=== PATIENT | male | born 1980 | race Caucasian/White ===

== ENCOUNTER 2022-01-29 20:01 | Inpatient (IN) | payer BC, SELFPAY ==
[2022-01-29] VITALS (15 sets, daily range): BP systolic 102–167; BP diastolic 76–94; PULSE 107–130; RESP 18–24; TEMP 36.6–36.7; O2SAT 99–100; BMI 27.7
--- NOTE | ~2022-01-29 | XR_ITS ---
XR chest 2V 01/31/2022 15:04 Indication: Postop. Dyspnea. Procedure: 2 view chest Comparison: No prior studies Findings: Size is normal. Bibasilar airspace disease may represent atelectasis or pneumonia. No signi ficant effusion or pneumothorax. No acute osseous abnormality. Impression: 1: Bibasilar infiltrates, atelectasis versus pneumonia. Reviewed, dictated and finalized at location A. Impression: 1: Bibasilar infiltrates, atelectasis versus pneumonia.
--- NOTE | ~2022-01-29 | CT_ITS ---
EXAMINATION: CT abdomen pelvis w con DATE: 01/29/2022 21:13 INDICATION: Right-sided flank pain radiating to the groin. TECHNIQUE: Computed tomography (CT) of the abdomen and pelvis was performed with 100 cc Omnipaque 350 intravenous contrast. The dose-length product was 1184.32 mGy-cm. Automated exposure control and ite rative reconstruction technique were employed. COMPARISON: None. FINDINGS: Lung bases are unremarkable. Heart size normal. There is hiatal hernia with reflux in the e sophagus. No significant pleural or pericardial effusion. Fatty infiltration of the liver. Gallbladder is present. The spleen, pancreas, adrenal glands and kid neys are unremarkable. Appendix is thickened and enhancing with surrounding periappendiceal infiltration, consistent with ac melany appendicitis. Appendix measures 1.5 cm transversely. Small amount of fluid in the right paracolic gutter and periappendiceal region extending into the pelvis. No evidence for perforation or abscess. Nonobstructive bowel gas pattern. No free air. IMPRESSION: 1. Acute uncomplicated appendicitis. Reviewed, dictated and finalized at location A.
--- NOTE | ~2022-01-29 | CT_ITS ---
EXAMINATION: CT abdomen pelvis w con INDICATION: Fever and tachycardia status post appendectomy TECHNIQUE: Computed tomographic images of the abdomen and pelvis were obtained after the administrati on of 100 cc of Omnipaque 350 intravenous contrast. The dose-length product (DLP) was 788.51 mGy-cm. Automated exposure control and iterative reconstruction technique were employed. COMPARISON: 01/29/2022 FINDINGS: There are airspace opacities in the lower lobes, right greater than left. The heart size is normal. The liver is diffusely low in attenuation when compared with the spleen, consistent with hep atic steatosis. The spleen, pancreas, gallbladder, and adrenal glands are normal. The kidneys are unr emarkable. There are changes of interval appendectomy. A surgical drain is present in the right lower quadrant. There are multiple dilated loops of small bowel without discrete transition point. The sto mach is fluid-filled and distended. There is fluid in the mildly distended distal esophagus. There is also liquid stool in the colon. There is a small volume of free fluid in the left pelvis. No free in traperitoneal gas is identified. There is mild lumbar spondylosis. IMPRESSION: 1. Dilated small bowel and stomach without focal transition point,, likely ileus. 2. Small volume of fluid in the left pelvis, likely inflammatory. Reviewed, dictated and finalized at location A. IMPRESSION: 1. Dilated small bowel and stomach without focal transition point,, likely ileu s. 2. Small volume of fluid in the left pelvis, likely inflammatory.
--- NOTE | ~2022-01-29 | XR_ITS ---
EXAMINATION: XR abdomen obstructive series DATE: 02/01/2022 22:27 INDICATION: Emesis. TECHNIQUE: Upright and supine views of the abdomen were obtained. COMPARISON: CT abdomen and pelvis 02/01/2022 FINDINGS: There are dilated loops of small bowel. The colon is decompressed. There is a surgical drai n on the right. No free intraperitoneal gas. There are airspace opacities in the lower lung zones. IMPRESSION: 1. Dilated small bowel, consistent with adynamic ileus. 2. Airspace opacities in the lower lung zones, consistent with atelectasis versus pneumonia. Reviewed, dictated and finalized at location A. IMPRESSION: 1. Dilated small bowel, consistent with adynamic ileus. 2. Airspace opacities in the lower lung zones, consistent with atelectasis vers us pneumonia.
--- NOTE | ~2022-01-29 | XR_ITS ---
EXAMINATION: XR chest 1V portable DATE: 02/01/2022 04:10 INDICATION: Hypoxia TECHNIQUE: frontal view of the chest was obtained. COMPARISON: Chest radiograph dated 01/31/2022 FINDINGS: Lung volumes remain small. Unchanged bilateral infrahilar and basilar opacities. No pleural effusion or pneumothorax. The cardiomediastinal silhouette is normal. IMPRESSION: 1. Unchanged bilateral perihilar and basilar opacities which could represent atelectasis or pneumonia . Reviewed, dictated and finalized at location A. IMPRESSION: 1. Unchanged bilateral perihilar and basilar opacities which could represent at electasis or pneumonia.
--- NOTE | ~2022-01-29 | XR_ITS ---
XR chest 1V portable INDICATION: Atelectasis. Pneumonia. TECHNIQUE: 2 view chest. FINDINGS: No prior studies for comparison. There is mild bilateral interstitial prominence and peribronchial cuffing. There is no focal consoli dation, pleural effusion, or pneumothorax. The cardiomediastinal silhouette is normal. IMPRESSION: 1. Findings most consistent with bronchiolitis versus an atypical or viral pneumonia. Reviewed, dictated and finalized at location B. IMPRESSION: 1. Findings most consistent with bronchiolitis versus an atypical or viral pne [facility].
[2022-01-29 20:19] LABS: Basophils Absolute Auto 0.1 K/mm3 (0.0-0.1); Basophils Percent Auto 0.3 % (0.2-1.2); Eosinophils Absolute Auto 0.1 K/mm3 (0-0.3); Eosinophils Percent Auto 0.5 % (0-4.4); Hematocrit 47.6 % (42.0-52.0); Hemoglobin 16.5 g/dL (14.0-18.0); Immature Granulocyte Absolute 0.11 K/mm3 (0.00-0.031); Immature Granulocyte Percent A 0.4 % (0-0.5); Lymphocytes Absolute Auto 2.65 K/mm3 (0.9-3.2); Lymphocytes Percent Auto 10.3 % (18.3-44.2); Mean Corpuscular HGB Conc 34.7 g/dl (32-36); Mean Corpuscular Hemoglobin 28.3 pg (26-34); Mean Corpuscular Volume 81.5 fl (80-100); Mean Platelet Volume 8.9 fl (7.4-10.4); Monocytes Absolute Auto 2.2 K/mm3 (0.1-0.6); Monocytes Percent Auto 8.5 % (2.6-8.5); Neutrophils Absolute Auto 20.5 K/mm3 (1.3-6.7); Platelet Count Result 512 k/mm3 (150-375); Red Blood Count 5.84 M/mm3 (4.6-6.20); Red Cell Distribution Width 13.1 % (11.5-14.5); White Blood Count 25.6 K/mm3 (4.5-10.0)
--- NOTE | 2022-01-29 20:20 | ED.ABDPAIN ---
HPI - Abdominal Pain General Chief Complaint: Abdominal Pain Stated Complaint: lower abd pain Time Seen by Provider: 01/29/22 20:09 Source: patient Mode of arrival: ambulatory Limitations: no limitations History of Present Illness HPI narrative: This is a 41 year old male that presents to the ER for right-sided abdominal pain present since this afternoon. Reports the pain radiates from the flank into the right testicle. Associated with nausea and vomiting. Denies fever or dysuria. Related Data Allergies Allergy/AdvReac Type Severity Reaction Status Date / Time No Known Drug Allergies Allergy Unknown Unknown Verified 01/29/22 20:02 Review of Systems Review of Systems: CONSTITUTIONAL: Denies fever GASTROINTESTINAL: Reports abdominal pain, nausea, vomiting GENITOURINARY: Denies dysuria or hematuria. All systems reviewed & are unremarkable except as noted in HPI and below PMFSH Past Medical History Medical History (Updated 01/29/22 @ 22:25 by Elda Conner PA-C) No active medical problems Social History Social History (Updated 01/29/22 @ 20:25 by Elda Conner PA-C) Smoking status: Never smoker Exam Narrative: GENERAL: Well-appearing, well-nourished, and in no acute distress. HEAD: Normocephalic, atraumatic. EYES: EOMI. CHEST: Clear to auscultation. No respiratory distress. No wheezes rales or rhonchi HEART: Regular rate and rhythm. No murmur heard. Normal peripheral pulses. ABDOMEN: Soft, nondistended, normal active bowel sounds. Tender to palpation throughout the right side of the abdomen. No CVA tenderness EXTREMITIES: Normal range of motion. No edema. SKIN: Warm, dry, no rash. NEURO: No focal deficits. Alert and oriented x3. PSYCH: Normal mood and affect Course Consultations Consultation #1: Spoke with Dr. Shay about patient and workup. Patient will be admitted overnight for likely OR in the AM Date: 01/29/22 Time: 22:00 Vital Signs Vital signs: Vital Signs Temperature 98.0 F 01/29/22 20:04 Pulse Rate 120 H 01/29/22 20:04 Respiratory Rate 24 H 01/29/22 20:04 Blood Pressure 131/90 01/29/22 20:04 Pulse Oximetry 100 01/29/22 20:04 Oxygen Delivery Room Air 01/29/22 20:04 Temperature 98.0 F 01/29/22 20:04 Pulse Rate 107 H 01/29/22 21:31 Respiratory Rate 18 01/29/22 21:31 Blood Pressure 160/87 H 01/29/22 21:31 Pulse Oximetry 99 01/29/22 21:31 Oxygen Delivery Room Air 01/29/22 20:04 MDM - Abdominal Pain MDM Narrative Medical decision making narrative: Patient presents to the emergency department for right-sided abdominal pain associated with nausea and vomiting. Patient is afebrile and nontoxic-appearing. Tachycardic upon arrival, this normalized with IV fluid administration. CBC with leukocytosis to 25.6. Lactic acid initially elevated at 4.1. Metabolic panel without concerning findings. UA without evidence of infection. CT scan of the abdomen and pelvis shows acute uncomplicated appendicitis. Patient hydrated with IV fluids and started on antibiotics. Spoke with Dr. Shay about patient and workup. Patient will be admitted overnight for likely OR in the AM Lab Data Attestation: I reviewed the patient's lab results. Result diagrams: 01/29/22 20:13 01/29/22 20:13 Labs: Lab Results 01/29/22 01/29/22 01/29/22 Range/Units 20:13 20:13 21:50 WBC 25.6 H (4.5-10.0) K/mm3 RBC 5.84 (4.6-6.20) M/mm3 Hgb 16.5 (14.0-18.0) g/dL Hct 47.6 (42.0-52.0) % MCV 81.5 (80-100) fl MCH 28.3 (26-34) pg MCHC 34.7 (32-36) g/dl RDW 13.1 (11.5-14.5) % Plt Count 512 H (150-375) k/mm3 MPV 8.9 (7.4-10.4) fl Immature Gran % (Auto) 0.4 (0-0.5) % Neut % (Auto) 80.0 H (45.5-73.1) % Lymph % (Auto) 10.3 L (18.3-44.2) % [place] % (Auto) 8.5 (2.6-8.5) % Eos % (Auto) 0.5 (0-4.4) % Baso % (Auto) 0.3 (0.2-1.2) % Lymph # (Auto) 2.65 (0.9-3.2) K/mm3 [place] # (Auto) 2.2 H
[2022-01-29] MEDS: MORPHINE SULFATE (*CRX) 4 MG/ML INJ IV PUSH (20:23)
[2022-01-29] MEDS: SODIUM CHLORIDE 0.9% IV 1,000 ML 999 ML IV CONT ×3 (20:23→23:17)
[2022-01-29] MEDS: ONDANSETRON INJ 4 MG/2 ML VIAL IV PUSH (20:23)
[2022-01-29 20:28] LABS: Alanine Aminotransferase 129 U/L (6-50); Albumin Level 5.1 g/dL (3.5-5.1); Alkaline Phosphatase 131 U/L (38-126); Anion Gap 15 mmol/L (8-16); Aspartate Amino Transferase 57 U/L (17-59); Bilirubin,Total 0.7 mg/dL (0.2-1.3); Blood Urea Nitrogen 15 mg/dL (9-20); Calcium 10.2 mg/dL (8.4-10.2); Carbon Dioxide 22 mmol/L (22-30); Chloride 100 mmol/L (98-107); Estimated CRCL calculation 106 ml/min; Estimated Glomerular Filt Rate > 60; Glucose 162 mg/dL (65-110); Lipase 89 U/L (23-300); Potassium 3.4 mmol/L (3.4-5.0); Sodium 137 mmol/L (137-145)
[2022-01-29 20:39] LABS: Atypical Lymphocytes Present; Platelet Estimate Increased (Adequate)
[2022-01-29] MEDS: HYDROmorphone HCL INJ (*CRX) 1 MG/ML SYR 0.5 MG IV PUSH (20:58)
[2022-01-29] MEDS: KETOROLAC 15 MG/ML VIAL (*BKC) IV PUSH (22:09)
[2022-01-29 22:11] LABS: Appearance Urine Clear (Clear); Bilirubin Urine Negative (Negative); Color Urine Yellow (Yellow); Glucose Urine UA Negative (Negative); Ketones Urine 1+ mg/dL (Negative); Leukocyte Esterase Ur Negative LEU/UL (Negative); Nitrate Urine Negative (Negative); Protein Urine Negative (Negative); Specific Grav Ur <= 1.005 (1.001-1.035); Urobilinogen Urine 0.2 mg/dL (<2.0)
[2022-01-29 22:14] LABS: Hemoglobin A1C 5.4 % (<5.7)
[2022-01-29 22:18] LABS: Lactic Acid Reflex 4.1 mmol/L (0.7-2.0); Mucus Urine Rare /lpf; RBC Urine 0-2 /hpf (0-2); Squamous Epithelial Cell Urine Rare /hpf (Few); WBC Urine 0-3 /hpf
[2022-01-29 22:19] LABS: Add Urine Microscopic? YES; Blood Urine Trace-Intact (Negative)
--- NOTE | 2022-01-29 23:00 | ADMGEN ---
This patient, Jose D Rodriguez, was admitted to Medical Room 241-01. Patient/family oriented to hospital policies and general routines including ID bracelet, bed and alarms, visiting hours, pain management, procedures, bathroom and other care routines, personal items, smoking policy, room service/diet, and visiting hours. Information on how to activate the Rapid Response Team has been discussed. Patient/Family are encouraged to report perceived risks to care and to ask questions if they do not understand what they are told or what they should do.
[2022-01-29 23:29] LABS: SARS-CoV-2 RNA PCR Negative
[2022-01-30] VITALS (14 sets, daily range): BP systolic 125–175; BP diastolic 68–97; PULSE 94–132; RESP 16–26; TEMP 36.1–37.2; O2SAT 90–100
[2022-01-30] MEDS: SODIUM CHLORIDE 0.9% IV 1,000 ML 125 ML IV CONT ×4 (00:29→20:13)
[2022-01-30 01:04] LABS: Reflex Lactic Acid Yes or No Add Lactic
[2022-01-30 01:43] LABS: Lactic Acid 3.4 mmol/L (0.7-2.0)
--- NOTE | 2022-01-30 08:06 | WPDANESEPP ---
Anes - Eval Pre Procedure Procedure: laparoscopic appendectomy Date/Time: 01/30/22 08:06 Preop Diagnosis: acute appendicitis Pre Op Diagnosis: acute apppendicitis Patient Data Age: 41 Gender: M Height: 1.85 m Weight: 95.3 kg Last Vital Signs Temp 37.2 C 01/30/22 04:56 Pulse 127 H 01/30/22 04:56 Resp 20 01/30/22 04:56 BP 125/68 01/30/22 04:56 Pulse Ox 96 01/30/22 04:56 O2 Del Method Room Air 01/29/22 20:04 Allergies Allergy/AdvReac Type Severity Reaction Status Date / Time No Known Drug Allergies Allergy Unknown Unknown Verified 01/29/22 20:02 Home Medications Medication Instructions Recorded Confirmed Type No Home Medications 01/29/22 01/29/22 History Laboratory Tests 01/29/22 01/29/22 01/29/22 20:13 20:13 21:50 WBC 25.6 K/mm3 H K/mm3 (4.5-10.0) RBC 5.84 M/mm3 M/mm3 (4.6-6.20) Hgb 16.5 g/dL g/dL (14.0-18.0) Hct 47.6 % % (42.0-52.0) MCV 81.5 fl fl (80-100) MCH 28.3 pg pg (26-34) MCHC 34.7 g/dl g/dl (32-36) RDW 13.1 % % (11.5-14.5) Plt Count 512 k/mm3 H k/mm3 (150-375) MPV 8.9 fl fl (7.4-10.4) Immature Gran % (Auto) 0.4 % % (0-0.5) Neut % (Auto) 80.0 % H % (45.5-73.1) Lymph % (Auto) 10.3 % L % (18.3-44.2) [place] % (Auto) 8.5 % % (2.6-8.5) Eos % (Auto) 0.5 % % (0-4.4) Baso % (Auto) 0.3 % % (0.2-1.2) Lymph # (Auto) 2.65 K/mm3 K/mm3 (0.9-3.2) [place] # (Auto) 2.2 K/mm3 H K/mm3 (0.1-0.6) Eos # (Auto) 0.1 K/mm3 K/mm3 (0-0.3) Baso # (Auto) 0.1 K/mm3 K/mm3 (0.0-0.1) Abs Immat Gran (auto) 0.11 K/mm3 H K/mm3 (0.00-0.031) Absolute Neuts (auto) 20.5 K/mm3 H K/mm3 (1.3-6.7) Absolute Nucleated RBC 0.0 K/mm3 K/mm3 (0.0-0.012) Nucleated RBC % 0.0 % % (0.0-0.2) Atypical Lymphocytes Present Platelet Estimate Increased (Adequate) Sodium 137 mmol/L mmol/L (137-145) Potassium 3.4 mmol/L mmol/L (3.4-5.0) Chloride 100 mmol/L mmol/L (98-107) Carbon Dioxide 22 mmol/L mmol/L (22-30) Anion Gap 15 mmol/L mmol/L (8-16) BUN 15 mg/dL mg/dL (9-20) Creatinine 0.90 mg/dL mg/dL (0.7-1.3) Estim Creat Clear Calc 106 ml/min ml/min Estimated GFR > 60 (59 - ) Glucose 162 mg/dL H mg/dL (65-110) Hemoglobin A1c Lactic Acid Calcium 10.2 mg/dL mg/dL (8.4-10.2) Total Bilirubin 0.7 mg/dL mg/dL (0.2-1.3) AST 57 U/L U/L (17-59) ALT 129 U/L H U/L (6-50) Alkaline Phosphatase 131 U/L H U/L (38-126) Total Protein 9.0 g/dL H g/dL (6.3-8.2) Albumin 5.1 g/dL g/dL (3.5-5.1) Lipase 89 U/L U/L (23-300) Urine Color Yellow (Yellow) Urine Appearance Clear (Clear) Urine pH 6.0 (5.0-9.0) Ur Specific [place] <= 1.005 (1.001-1.035) Urine Protein Negative mg/dL mg/dL (Negative) Urine Glucose (UA) Negative mg/dL mg/dL (Negative) Urine Ketones 1+ mg/dL H mg/dL (Negative) Ur Blood (Man) Trace-intact (Negative) Urine Nitrate Negative (Negative) Urine Bilirubin Negative (Negative) Urine Urobilinogen 0.2 mg/dL mg/dL (<2.0) Leukocyte Esterase Rfl Negative JONATHAN/UL JONATHAN/UL (Negative) Urine RBC 0-2 /hpf /hpf (0-2) Urine WBC 0-3 /hpf /hpf Ur Squamous Epith Cells Rare /hpf /hpf (Few) Urine Mucus Rare /lpf /lpf SARS-CoV-2 RNA (RT-PCR) 01/29/22 01/29/22 01/29/22 21:50 21:50 22:38 WBC RBC Hgb Hct MCV MCH MCHC RDW P
--- NOTE | 2022-01-30 08:39 | PM.IMHP ---
H&P: HPI History of Present Illness Date/Time: 01/30/22 08:39 Chief Complaint: RLQ abd pain Narrative: Pt is a 41 y/o M presenting to the ED c/o severe RLQ abd pain. Pt reports pain started acutely yesterday afternoon. Pt reports pain is sharp, constant and radiates to back and groin. Pt reports assoc N/V, anorexia. Pt denies f/c. Pt denies previous episodes. Review of Systems Constitutional: Constitutional: Reports anorexia, Denies chills, Reports fatigue, Denies fever(s), Denies increased appetite, Denies lethargy, Denies malaise, Reports poor appetite, Denies weakness, Denies weight gain and Denies weight loss Eyes: Eyes: Reports no additional eye complaints ENT: Reports system reviewed and no additional complaints, except as documented Cardiovascular: Cardiovascular: Reports no additional cardiovascular complaints Respiratory: Respiratory: Reports no additional respiratory complaints Gastrointestinal: Gastrointestinal: Reports abdominal pain, Reports GI cramping, Reports nausea and Reports vomiting Genitourinary: Genitourinary: Reports no additional male genitourinary complaints Musculoskeletal: Musculoskeletal: Reports no additional musculoskeletal complaints Integumentary/Breasts: Skin/Breast: Reports system reviewed and no additional complaints, except as docu Neurologic: Reports system reviewed and no additional complaints, except as documented Psychiatric: Psychiatric: Reports no additional psychiatric complaints Endocrine: Endocrine: Reports no additional endocrine complaints Hematologic/Lymphatic: Hematologic/Lymphatic: Reports no additional hematologic/lymphatic complaints Allergic/Immunologic: Allergic/Immunologic: Reports no additional allergic/immunologic complaints [facility] Past Medical History Medical History No active medical problems Family History Family History Father Cerebrovascular accident Hypertension Social History Social History Smoking status: Never smoker Alcohol intake: never Substance use: never Spiritual care concerns: No Meds Home Medications and Allergies Home Medications Medication Instructions Recorded Confirmed Type No Home Medications 01/29/22 01/29/22 History Allergies Allergy/AdvReac Type Severity Reaction Status Date / Time No Known Drug Allergies Allergy Unknown Unknown Verified 01/29/22 20:02 Vital Signs Vital Signs - 24 hr 01/29/22 20:04 01/29/22 20:09 01/29/22 20:15 Temperature 36.7 C Pulse Rate 120 H Respiratory Rate 24 H Blood Pressure 131/90 Pulse Oximetry 100 100 100 Oxygen Delivery Room Air 01/29/22 20:16 01/29/22 20:30 01/29/22 20:31 Temperature Pulse Rate Respiratory Rate Blood Pressure 102/88 142/93 H Pulse Oximetry 100 100 100 Oxygen Delivery 01/29/22 20:45 01/29/22 20:47 01/29/22 21:14 Temperature Pulse Rate Respiratory Rate Blood Pressure 150/76 H Pulse Oximetry 100 100 100 Oxygen Delivery 01/29/22 21:15 01/29/22 21:27 01/29/22 21:30 Temperature Pulse Rate Respiratory Rate Blood Pressure 157/82 H Pulse Oximetry 100 99 100 Oxygen Delivery 01/29/22 21:31 01/29/22 22:43 01/29/22 23:09 Temperature 36.6 C Pulse Rate 107 H 108 H 130 H Respiratory Rate 18 24 H 20 Blood Pressure 160/87 H 167/87 H 141/94 H Pulse Oximetry 99 99 99 Oxygen Delivery 01/30/22 00:01 01/30/22 04:56 Temperature 37.0 C 37.2 C Pulse Rate 127 H Respiratory Rate 20 Blood Pressure 125/68 Pulse Oximetry 96 Oxygen Delivery Exam Const: General: cooperative, healthy appearing, acute distress mild and uncomfortable HENMT: Head: normal to inspection, normocephalic and atraumatic Eyes: General: appearance normal, both eyes and all related structures Neck: Neck: normal visual inspe
--- NOTE | 2022-01-30 08:49 | WPDHPUPDATE1 ---
History and Physical Update Update Date/Time: 01/30/22 08:49 History and Physical has been reviewed, including an updated exam of the patient. There are NO changes in the patient's condition. Risks, benefits, and alternatives have been discussed and questions answered. Patient agrees to proceed with procedure.
--- NOTE | 2022-01-30 09:00 | WPDANESEPPF ---
Anes - Initial Pre Proc Eval Procedure: Operation Date: 01/30/22 09:00 Proposed Procedures p Laparoscopic Appendectomy - Sarah Shay MD Date/Time: 01/30/22 09:00 Surgeon: Sheree Rios MD Pre Op Diagnosis: acute apppendicitis Patient Data Age: 41 Gender: M Height: 1.85 m Weight: 95.3 kg Last Vital Signs Temp 37.2 C 01/30/22 04:56 Pulse 127 H 01/30/22 04:56 Resp 20 01/30/22 04:56 BP 125/68 01/30/22 04:56 Pulse Ox 96 01/30/22 04:56 O2 Del Method Room Air 01/29/22 20:04 Allergies Allergy/AdvReac Type Severity Reaction Status Date / Time No Known Drug Allergies Allergy Unknown Unknown Verified 01/29/22 20:02 Home Medications Medication Instructions Recorded Confirmed Type No Home Medications 01/29/22 01/29/22 History Laboratory Tests 01/29/22 01/29/22 01/29/22 20:13 20:13 21:50 WBC 25.6 K/mm3 H K/mm3 (4.5-10.0) RBC 5.84 M/mm3 M/mm3 (4.6-6.20) Hgb 16.5 g/dL g/dL (14.0-18.0) Hct 47.6 % % (42.0-52.0) MCV 81.5 fl fl (80-100) MCH 28.3 pg pg (26-34) MCHC 34.7 g/dl g/dl (32-36) RDW 13.1 % % (11.5-14.5) Plt Count 512 k/mm3 H k/mm3 (150-375) MPV 8.9 fl fl (7.4-10.4) Immature Gran % (Auto) 0.4 % % (0-0.5) Neut % (Auto) 80.0 % H % (45.5-73.1) Lymph % (Auto) 10.3 % L % (18.3-44.2) [place] % (Auto) 8.5 % % (2.6-8.5) Eos % (Auto) 0.5 % % (0-4.4) Baso % (Auto) 0.3 % % (0.2-1.2) Lymph # (Auto) 2.65 K/mm3 K/mm3 (0.9-3.2) [place] # (Auto) 2.2 K/mm3 H K/mm3 (0.1-0.6) Eos # (Auto) 0.1 K/mm3 K/mm3 (0-0.3) Baso # (Auto) 0.1 K/mm3 K/mm3 (0.0-0.1) Abs Immat Gran (auto) 0.11 K/mm3 H K/mm3 (0.00-0.031) Absolute Neuts (auto) 20.5 K/mm3 H K/mm3 (1.3-6.7) Absolute Nucleated RBC 0.0 K/mm3 K/mm3 (0.0-0.012) Nucleated RBC % 0.0 % % (0.0-0.2) Atypical Lymphocytes Present Platelet Estimate Increased (Adequate) Sodium 137 mmol/L mmol/L (137-145) Potassium 3.4 mmol/L mmol/L (3.4-5.0) Chloride 100 mmol/L mmol/L (98-107) Carbon Dioxide 22 mmol/L mmol/L (22-30) Anion Gap 15 mmol/L mmol/L (8-16) BUN 15 mg/dL mg/dL (9-20) Creatinine 0.90 mg/dL mg/dL (0.7-1.3) Estim Creat Clear Calc 106 ml/min ml/min Estimated GFR > 60 (59 - ) Glucose 162 mg/dL H mg/dL (65-110) Hemoglobin A1c Lactic Acid Calcium 10.2 mg/dL mg/dL (8.4-10.2) Total Bilirubin 0.7 mg/dL mg/dL (0.2-1.3) AST 57 U/L U/L (17-59) ALT 129 U/L H U/L (6-50) Alkaline Phosphatase 131 U/L H U/L (38-126) Total Protein 9.0 g/dL H g/dL (6.3-8.2) Albumin 5.1 g/dL g/dL (3.5-5.1) Lipase 89 U/L U/L (23-300) Urine Color Yellow (Yellow) Urine Appearance Clear (Clear) Urine pH 6.0 (5.0-9.0) Ur Specific [place] <= 1.005 (1.001-1.035) Urine Protein Negative mg/dL mg/dL (Negative) Urine Glucose (UA) Negative mg/dL mg/dL (Negative) Urine Ketones 1+ mg/dL H mg/dL (Negative) Ur Blood (Man) Trace-intact (Negative) Urine Nitrate Negative (Negative) Urine Bilirubin Negative (Negative) Urine Urobilinogen 0.2 mg/dL mg/dL (<2.0) Leukocyte Esterase Rfl Negative JONATHAN/UL JONATHAN/UL (Negative) Urine RBC 0-2 /hpf /hpf (0-2) Urine WBC 0-3 /hpf /hpf Ur Squamous Epith Cells Rare /hpf /hpf (Few) Urine Mucus Rare /lpf /lpf SARS-CoV-2 RNA (RT-PCR) 01/29/22 01/29/22 01/29/22 21:50 21:50 22:38 WBC RBC Hgb Hc
[2022-01-30] MEDS: LACTATED RINGERS 1,000 ML 30 ML IV CONT (09:05)
--- NOTE | 2022-01-30 09:54 | W.PM.PROC2 ---
Procedure Note - Detailed Date of Procedure 01/30/22 Pre-op Diagnosis acute apppendicitis Post-op Diagnosis Other (acute appendicitis with abscess) Procedure Performed laparoscopic appendectomy, drainage and washout right lower quadrant abscess Surgeon Sarah Shay MD Anesthesia General Indications 41 y/o M c acute appendicitis, associated RLQ intraabd abscess Findings acute appy, RLQ abscess Description of Procedure The patient was taken to the operating room and placed in the supine position. After adequate induction of general anesthesia, the patient was prepped and draped in the normal sterile fashion. A time-out was then done to verify the patient's identity, as well as the procedure being performed. I began by making a 5 mm incision in the infraumbilical region, through this a Veress needle was placed in the peritoneal cavity. CO2 gas was then insufflated and after adequate pneumoperitoneum was achieved the Veress needle was removed. Then placed a 5 mm Optiview trocar under direct visualization into the peritoneal cavity. I then insufflated through this trocar site and the endoscope was placed into the trocar. Under direct visualization, placed 2 further 5 mm suprapubic port as well as an additional 12 mm port in the left lower abdomen. At this point identified the cecum, I retracted the cecum both medially and superiorly allowing me to expose the appendix. The appendix was noted to be very dilated and inflamed. No obvious perforation was noted, however, there was an associated RLQ abscess. The abscess was drained and washed out. The appendix was noted to be very adherent to the right lateral sidewall as well as the ileum. I was able to bluntly dissect the appendix from these adhesions. I then was able to locate the base of the appendix with the cecum. I created a window with the [place] dissector between the appendix itself and the mesoappendix. I then transected the mesoappendix with a white vascular staple load x 2. The Endo-BRIANA was then reloaded with a blue staple load and I transected the base of the appendix. Once the specimen was completely detached, an endo-pouch was placed into the 12 mm port site and the specimen was removed through the endo-pouch. The appendiceal specimen will be sent to pathology for further review. I then copiously irrigated the right lower quadrant. Hemostasis was noted at both staple lines no other pathology was seen in this area. I then moved the camera to the suprapubic port to check our its port of entry. No iatrogenic injury or other pathology was noted in the upper abdomen. I then closed the 12 mm port site with a [place] code and 0 Vicryl suture under direct visualization. Given the abscess, I placed a 15 [place] drain in the RLQ coming out through the 5 mm suprapubic port site. At this point, the abdomen was desufflated and all ports were removed. All port sites were closed with 4 Monocryl subcuticular suture. Dermabond was placed on all wounds. The patient tolerated the procedure well and was extubated in the operating room postop. He will be sent to the recovery room in stable condition. Estimated Blood Loss 10 Urine Output 900 Drains Yes Packing No Pathology Yes Complications No immediate complications Condition Stable Disposition PACU [facility] Billing Surgery - Charge Forward: Surgery Billing
[2022-01-30] MEDS: fentaNYL CITRATE INJ (*CRX) 100 MCG/2 ML VIAL 25 MCG IV PUSH ×5 (10:13→10:35)
[2022-01-30] MEDS: HYDROcodone/acetaminophen (*CRX) 5-325 MG TABLET 1 TAB PO ×2 (11:41→20:11)
[2022-01-30] MEDS: HYDROmorphone HCL INJ (*CRX) 1 MG/ML SYR 0.5 MG IV PUSH (13:18)
[2022-01-31] VITALS (10 sets, daily range): BP systolic 132–157; BP diastolic 70–96; PULSE 88–142; RESP 16–20; TEMP 36.7–38.2; O2SAT 93–98
[2022-01-31] MEDS: HYDROmorphone HCL INJ (*CRX) 1 MG/ML SYR 0.5 MG IV PUSH (00:23)
[2022-01-31] MEDS: HYDROcodone/acetaminophen (*CRX) 5-325 MG TABLET 1 TAB PO ×5 (01:43→19:29)
[2022-01-31] MEDS: SODIUM CHLORIDE 0.9% IV 1,000 ML 125 ML IV CONT (05:33)
--- NOTE | 2022-01-31 05:53 | ECG_ITS ---
Measurements Intervals [place] Rate: 126 P: 50 NC: 170 QRS: 2 QRSD: 85 T: 14 QT: 276 QTc: 400 Interpretive Statements SINUS TACHYCARDIA BORDERLINE ECG NO PREVIOUS ECG AVAILABLE FOR COMPARISON Electronically Signed On 01-31-2022 14:39:44 CDT by Derick Mireles M.D.
[2022-01-31] MEDS: ALPRAZolam (*CRX) 0.25 MG TABLET PO (06:02)
[2022-01-31] MEDS: FUROSEMIDE INJ 40 MG/4 ML VIAL IV PUSH (06:02)
[2022-01-31 06:58] LABS: Hematocrit 43.1 % (42.0-52.0); Hemoglobin 14.4 g/dL (14.0-18.0); Mean Corpuscular HGB Conc 33.4 g/dl (32-36); Mean Corpuscular Hemoglobin 28.3 pg (26-34); Mean Corpuscular Volume 84.7 fl (80-100); Mean Platelet Volume 8.9 fl (7.4-10.4); Platelet Count Result 365 k/mm3 (150-375); Red Blood Count 5.09 M/mm3 (4.6-6.20); Red Cell Distribution Width 13.7 % (11.5-14.5)
[2022-01-31 07:11] LABS: Anion Gap 13 mmol/L (8-16); Blood Urea Nitrogen 13 mg/dL (9-20); Calcium 9.3 mg/dL (8.4-10.2); Carbon Dioxide 26 mmol/L (22-30); Chloride 99 mmol/L (98-107); Estimated CRCL calculation 88 ml/min; Estimated Glomerular Filt Rate > 60; Glucose 139 mg/dL (65-110); Potassium 3.7 mmol/L (3.4-5.0); Sodium 138 mmol/L (137-145)
--- NOTE | 2022-01-31 09:30 | PM.PNGS ---
Progress Note: A&P Assessment and Plan (1) Acute appendicitis: Qualifiers: Acute appendicitis type: with localized peritonitis Appendicitis abscess presence: without abscess Appendicitis gangrene presence: without gangrene Appendicitis perforation presence: without perforation Qualified Code(s): K35.30 - Acute appendicitis with localized peritonitis, without perforation or gangrene Code(s): K35.80 - Unspecified acute appendicitis Status: Acute Assessment and Plan: doing well from surgical standpoint, WBC decreased, cont drain, IV abx for now, encourage OOB/IS, ADAT (2) Acute anxiety: Code(s): F41.9 - Anxiety disorder, unspecified Status: Acute Assessment and Plan: appreciate medical input, agree c Xanax, cont to watch closely Subjective Subjective Date/Time Seen: 01/31/22 09:30 very anxious, reports heart is racing, reports some incisional soreness, but RLQ pain is largely resolved Review of Systems Review of Systems: All systems reviewed & are unremarkable except as noted in HPI and below Exam Const: General: cooperative, anxious and uncomfortable Resp: Auscultation: clear to auscultation bilaterally Cardio: Rate: tachycardic Rhythm: regular rhythm GI: Inspection: normal to inspection, distended and incision GI Palp: Yes abdominal tenderness, Yes Soft to palpation, Yes Tenderness to palpation present (GI), No Guarding due to palpation present (GI) and No Rigid due to palpation Other: ANASTASIYA c s/s output Objective Data Vital Signs Vital Signs: Vital Signs - 24 hr 01/30/22 10:01 01/30/22 10:16 01/30/22 10:27 Temperature 37.1 C 37.1 C Pulse Rate 132 H 118 H Respiratory Rate 26 H 20 Blood Pressure 170/70 H 163/96 H Pulse Oximetry 95 100 Oxygen Delivery Simple Face Mask Simple Face Mask Room Air Oxygen Flow Rate 8 8 01/30/22 10:30 01/30/22 10:45 01/30/22 10:56 Temperature Pulse Rate 123 H 122 H 118 H Respiratory Rate 22 H 22 H 20 Blood Pressure 175/92 H 156/97 H 153/91 H Pulse Oximetry 90 96 95 Oxygen Delivery Room Air Nasal Cannula Nasal Cannula Oxygen Flow Rate 2 2 01/30/22 11:10 01/30/22 11:25 01/30/22 11:55 Temperature 36.1 C L 36.9 C 36.9 C Pulse Rate 113 H 103 H 96 Respiratory Rate 18 20 20 Blood Pressure 138/82 143/89 H 144/92 H Pulse Oximetry 96 96 97 Oxygen Delivery Oxygen Flow Rate 01/30/22 12:55 01/30/22 14:46 01/30/22 18:55 Temperature 36.8 C 36.4 C 36.8 C Pulse Rate 99 97 98 Respiratory Rate 20 18 16 Blood Pressure 143/89 H 145/83 H 148/86 H Pulse Oximetry 97 95 95 Oxygen Delivery Oxygen Flow Rate 01/30/22 21:51 01/31/22 01:40 01/31/22 06:00 Temperature 36.7 C 36.7 C 37.2 C Pulse Rate 94 88 135 H Respiratory Rate 16 16 20 Blood Pressure 139/75 132/70 157/92 H Pulse Oximetry 98 98 94 Oxygen Delivery Oxygen Flow Rate Intake/Output Intake/Output: Intake & Output 01/28/22 01/29/22 01/30/22 01/31/22 23:59 23:59 23:59 23:59 Intake Total 2150 4890 1100 Output Total 2895 2150 Balance 2150 1994 -1049 Meds/Results Medications: Active Medications Generic Name Dose Route Start Last Admin Trade Name Freq PRN Reason Stop Dose Admin Hydrocodone Bitart/Acetaminophen 1 tab 01/30/22 10:57 01/31/22 05:33 Hydrocodone/Acetaminophen (*Crx) 5-325 Mg Tablet PO 1 tab Q4H PRN Administration Pain Rated 4-6 Alprazolam 0.5 mg 01/31/22 08:02 Alprazolam (*Crx) 0.5 Mg Tablet PO TID PRN Anxiety Calcium Carbonate 200 mg 01/31/22 08:16 Calcium Carbonate (Tums) 500 Mg (200 Mg Elemental) PO Q6H PRN Indigestion Hydromorphone HCl 0.5 mg 01/29/22 21:59 01/31/22 00:23 Hydromorphone Hcl Inj (*Crx) 1 Mg/Ml Syr IV PUSH 0.5 mg Q4H PRN Administration Pain Rated 7-10 Piperacillin/Tazobactam/Dextrose 3.375 gm in 50 mls @ 100 mls/hr 01/30/22 06:00 01/31/22 06:04 Zosyn 3.375 Gm/D5w 50ml Pm IVPB Infused Q6H GONSALO Infusion Miscella
--- NOTE | 2022-01-31 09:33 | PM.IMCN ---
Assessment and Plan Assessment and plan (1) Acute appendicitis: Qualifiers: Acute appendicitis type: with localized peritonitis Appendicitis abscess presence: without abscess Appendicitis gangrene presence: without gangrene Appendicitis perforation presence: without perforation Qualified Code(s): K35.30 - Acute appendicitis with localized peritonitis, without perforation or gangrene Code(s): K35.80 - Unspecified acute appendicitis Status: Acute Assessment and Plan: Jose D Rodriguez is a 41 year old male Presented emergency department with complaint of severe right lower quadrant abdominal pain, pain started 1 day prior to coming to emergency department, was persistent with nausea or vomiting, appetite denied any fever or chills upon [place] [id number] scan of abdomen showed uncomplicated appendicitis patient was seen by surgery service and was emergently taken to the OR and had appendectomy, we have been consulted for medical management, this morning patient complains of gastritis GERD and anxiety, patient started on Protonix 40 mg IV q.day, Tums p.r.n., Xanax 0.5 mg q.8 as needed for anxiety, patient appears quite anxious, patient is passing gas this morning no BM, patient be seen by surgery service and further recommendation to follow, we appreciate for consulting us for medical management will follow the patient with you please feel free to call us with any questions. (2) Acute anxiety: Code(s): F41.9 - Anxiety disorder, unspecified Status: Acute Assessment and Plan: patient with reactive anxiety secondary to appendectomy and being in the hospital, will give the Xanax to 0.5 mg as needed. HPI Data of Consult Consult date: 01/31/22 Requesting Physician: Sheree Rios MD Primary Care Provider: Randy Hudson, MJanel Consult Narrative Narrative: Jose D Rodriguez is a 41 year old male Presented emergency department with complaint of severe right lower quadrant abdominal pain, pain started 1 day prior to coming to emergency department, was persistent with nausea or vomiting, appetite denied any fever or chills upon [place] [id number] scan of abdomen showed uncomplicated appendicitis patient was seen by surgery service and was emergently taken to the OR and had appendectomy, we have been consulted for medical management, this morning patient complains of gastritis GERD and anxiety, patient started on Protonix 40 mg IV q.day, Tums p.r.n., Xanax 0.5 mg q.8 as needed for anxiety, patient appears quite anxious, patient is passing gas this morning no BM, patient be seen by surgery service and further recommendation to follow, we appreciate for consulting us for medical management will follow the patient with you please feel free to call us with any questions. Review of Systems Review of Systems: All systems reviewed & are unremarkable except as noted in HPI and below PMFSH Past Medical History Medical History No active medical problems Family History Family History Father Cerebrovascular accident Hypertension Social History Social History Smoking status: Never smoker Alcohol intake: never Substance use: never Spiritual care concerns: No Meds Home Medications and Allergies Home Medications Medication Instructions Recorded Confirmed Type hydrocodone 5 mg-acetaminophen 325 1 tablet PO Q6H PRN pain #20 tabs 01/31/22 Rx mg tablet Allergies Allergy/AdvReac Type Severity Reaction Status Date / Time No Known Drug Allergies Allergy Unknown Unknown Verified 01/29/22 20:02 Vital Signs Vital Signs - 24 hr 01/30/22 10:01 01/30/22 10:16 01/30/22 10:27 Temperature 98.8 F 98.7 F Pulse Rate 132 H 118 H Respiratory Rate 26 H 20 Blood Pre
[2022-01-31] MEDS: ALPRAZolam (*CRX) 0.5 MG TABLET PO ×2 (09:37→20:40)
[2022-01-31] MEDS: PANTOPRAZOLE SODIUM IV 40 MG VIAL IV PUSH (09:39)
[2022-01-31] MEDS: ACETAMINOPHEN 325 MG TABLET 650 MG PO ×2 (15:46→18:10)
[2022-01-31 17:31] LABS: Lactic Acid Reflex 1.7 mmol/L (0.7-2.0)
[2022-01-31] MEDS: SODIUM CHLORIDE 0.9% IV 1,000 ML 999 ML IV CONT (18:11)
[2022-01-31] MEDS: CALCIUM CARBONATE (TUMS) 500 MG (200 MG ELEMENTAL) PO (20:40)
[2022-01-31] MEDS: METOPROLOL TARTRATE INJ 5 MG/5 ML VIAL IV PUSH (22:54)
[2022-02-01] VITALS (20 sets, daily range): BP systolic 144–163; BP diastolic 94–107; PULSE 107–138; RESP 12–18; TEMP 36.5–38.7; O2SAT 91–99
[2022-02-01] MEDS: traZODone HCL 50 MG TABLET PO (00:58)
--- NOTE | 2022-02-01 02:06 | PC.NURSE ---
pt sleeping at present
[2022-02-01] MEDS: HYDROcodone/acetaminophen (*CRX) 5-325 MG TABLET 1 TAB PO ×4 (03:32→21:02)
[2022-02-01] MEDS: ALPRAZolam (*CRX) 0.5 MG TABLET PO ×3 (04:52→21:02)
[2022-02-01] MEDS: ACETAMINOPHEN 325 MG TABLET 650 MG PO (04:52)
[2022-02-01 05:26] LABS: Hematocrit 44.9 % (42.0-52.0); Hemoglobin 15.1 g/dL (14.0-18.0); Mean Corpuscular HGB Conc 33.6 g/dl (32-36); Mean Corpuscular Hemoglobin 28.2 pg (26-34); Mean Corpuscular Volume 83.8 fl (80-100); Mean Platelet Volume 9.2 fl (7.4-10.4); Platelet Count Result 444 k/mm3 (150-375); Red Blood Count 5.36 M/mm3 (4.6-6.20); Red Cell Distribution Width 13.5 % (11.5-14.5); White Blood Count 10.8 K/mm3 (4.5-10.0)
[2022-02-01 05:33] LABS: Alanine Aminotransferase 50 U/L (6-50); Albumin Level 4.2 g/dL (3.5-5.1); Alkaline Phosphatase 82 U/L (38-126); Anion Gap 11 mmol/L (8-16); Aspartate Amino Transferase 31 U/L (17-59); Bilirubin,Total 1.3 mg/dL (0.2-1.3); Blood Urea Nitrogen 17 mg/dL (9-20); Calcium 9.7 mg/dL (8.4-10.2); Carbon Dioxide 29 mmol/L (22-30); Chloride 91 mmol/L (98-107); Estimated CRCL calculation 96 ml/min; Estimated Glomerular Filt Rate > 60; Glucose 148 mg/dL (65-110); Magnesium 2.3 mg/dL (1.6-2.3); Potassium 3.6 mmol/L (3.4-5.0); Sodium 131 mmol/L (137-145)
[2022-02-01] MEDS: METOPROLOL TARTRATE INJ 5 MG/5 ML VIAL IV PUSH (05:57)
[2022-02-01] MEDS: SODIUM CHLORIDE 0.9% IV 1,000 ML 125 ML IV CONT ×2 (06:49→16:24)
[2022-02-01 07:36] LABS: Procalcitonin 2.5 ng/mL
[2022-02-01] MEDS: PANTOPRAZOLE SODIUM IV 40 MG VIAL IV PUSH (08:07)
[2022-02-01] MEDS: METOPROLOL SUCCINATE EXT REL 25 MG TABCR PO (08:44)
--- NOTE | 2022-02-01 09:20 | PM.PNGS ---
Progress Note: A&P Assessment and Plan (1) Acute appendicitis: Qualifiers: Acute appendicitis type: with localized peritonitis Appendicitis abscess presence: without abscess Appendicitis gangrene presence: without gangrene Appendicitis perforation presence: without perforation Qualified Code(s): K35.30 - Acute appendicitis with localized peritonitis, without perforation or gangrene Code(s): K35.80 - Unspecified acute appendicitis Status: Acute Assessment and Plan: WBC trending down, but still having fevers. Will repeat CT abdomen/pelvis to further evaluate. Continue IV abx. Monitor ANASTASIYA drain. Seems to be developing an ileus, consider backing off diet if nausea worsens. Encouraged increasing activity, ambulating in the halls, and IS use. (2) Acute anxiety: Code(s): F41.9 - Anxiety disorder, unspecified Status: Acute Plan I have discussed the patient's case and plan of care with Dr. Shay. Subjective Subjective Date/Time Seen: 02/01/22 09:20 Post Op day: 2 (laparoscopic appendectomy) Patient reports: voiding w/o difficulty, no flatus, no bowel movement, nausea and fever Interval history: 41 yo male who presented with acute appendicitis. He was taken for laparoscopic appendectomy on 01/30/22 and was found to have acute appendicitis with abscess. Chart reviewed. Patient seen and examined. He reports abdominal pain with movement, but comfortable at rest. Reports slight nausea, but no vomiting. Reports bloating. He has been febrile with a temp of 101.7F this morning and tachycardia. Denies SOB or chest pain. No other complaints at this time. Patient very anxious. Review of Systems Review of Systems: All systems reviewed & are unremarkable except as noted in HPI and below Exam Const: General: comfortable, no acute distress and awake Orientation/consciousness: patient oriented x3 GI: Inspection: distended, incision (Abdominal incisions dry and intact.) and other (ANASTASIYA with serosanguineous drainage) GI Palp: Yes Soft to palpation, Yes Tenderness to palpation present (GI) (incisional), No Guarding due to palpation present (GI) and No Rebound tenderness present Auscultation: Hypoactive bowel sounds present (very hypoactive) Neuro: General: moves all extremities and no focal motor deficits Extrem: General: no calf tenderness and no edema Psych: Mental Status: mental status grossly normal Insight: Good insight present (Psych) Objective Data Vital Signs Vital Signs: Vital Signs - 24 hr 01/31/22 14:00 01/31/22 15:46 01/31/22 16:00 Temperature 100.6 F H 100.6 F H Pulse Rate 142 H 138 H Respiratory Rate 20 Blood Pressure 156/96 H Pulse Oximetry 93 Oxygen Delivery Oxygen Flow Rate 01/31/22 17:16 01/31/22 18:10 01/31/22 19:53 Temperature 100.7 F H 100.7 F H 98.3 F Pulse Rate 112 H Respiratory Rate 16 Blood Pressure 151/91 H Pulse Oximetry 95 Oxygen Delivery Oxygen Flow Rate 01/31/22 20:00 01/31/22 22:54 02/01/22 00:00 Temperature Pulse Rate 129 H 116 H 107 H Respiratory Rate Blood Pressure Pulse Oximetry Oxygen Delivery Oxygen Flow Rate 02/01/22 00:09 02/01/22 03:26 02/01/22 04:00 Temperature 97.7 F 99 F Pulse Rate 109 H 129 H 133 H Respiratory Rate 16 12 Blood Pressure 150/107 H 144/104 H Pulse Oximetry 96 91 Oxygen Delivery Oxygen Flow Rate 02/01/22 04:52 02/01/22 04:40 02/01/22 05:57 Temperature 100.8 F H 100.8 F H Pulse Rate 128 H 138 H Respiratory Rate 16 Blood Pressure 163/97 H Pulse Oximetry 97 Oxygen Delivery Oxygen Flow Rate 02/01/22 06:00 02/01/22 06:54 02/01/22 07:28 Temperature 100.2 F H 100.2 F H 101.7 F H Pulse Rate 123 H Respiratory Rate Blood Pressure Pulse Oximetry 93 Oxygen Delivery Oxygen Flow Rate 02/01/22 08:00 02/01/22 08:44 Temperature Pulse Rate 120 H Respiratory Rate Blood Pressure Pulse Oximetry 93 Oxygen De
--- NOTE | 2022-02-01 09:23 | PM.IMPN ---
Progress Note: A&P Assessment and Plan (1) Acute appendicitis: Qualifiers: Acute appendicitis type: with localized peritonitis Appendicitis abscess presence: without abscess Appendicitis gangrene presence: without gangrene Appendicitis perforation presence: without perforation Qualified Code(s): K35.30 - Acute appendicitis with localized peritonitis, without perforation or gangrene Code(s): K35.80 - Unspecified acute appendicitis Status: Acute Assessment and Plan: - Today's postop day 2. - Patient with interval development fever, tachycardia, oxygen requirement. - Patient has been administered 2 doses IV metoprolol for tachycardia 30s to 140s. He is currently sustaining 120s with fever ranging 100.6-101.7. - Continuing IV antibiotics Zosyn and azithromycin - surgery is managing and CT of abdomen and pelvis is being ordered for repeat this morning. - Chest x-ray indicated suspicion of pneumonia versus atelectasis in the bilateral bases. - Urine culture and blood cultures x2 are pending. - Procalcitonin checked to be 2.5. Remainder of labs are without significant. - Continue IV antibiotics and fluids of normal saline at 125 mL/hour. - New onset sepsis. Source intra-abdominal versus respiratory. (2) Sepsis: Code(s): A41.9 - Sepsis, unspecified organism Status: Acute Assessment and Plan: - of unknown organism. - See plan for problem #1. (3) Acute anxiety: Code(s): F41.9 - Anxiety disorder, unspecified Status: Acute Assessment and Plan: - Continue Xanax at this time. - Patient extremely anxious regarding his current health status. All questions were answered for the patient to the best my ability he was reassured medical team is working along with surgery. Time Spent With Patient Time with patient: 25 - 35 minutes Subjective Date/time seen: 02/01/22 0810 This pt. is examined at the bedside this AM in interval assessment. He was reportedly very anxious over night and continues to be that way upon talking to him. The pt. has been febrile and tachycardic with elevated Procalcitonin, but normal Lactic acid. He continues to complain of abdominal pain as well as back pain. Preliminary imaging of his chest has identified atelectasis versus developing pneumonia. Patient has no symptoms of cough, dyspnea. He has had to receive 2 doses of IV metoprolol overnight for tachycardia. This morning with a temperature of 101.7? he is meeting sepsis criteria with a source potential respiratory versus intra abdominal. He remains on Zosyn and azithromycin at this time. Blood cultures x2 are pending as is urine culture. Leukocytosis continues to resolve with white blood cell count this morning 10.8. He denies any chest pain, dyspnea, vomiting or diarrhea. He denies passing any flatus. He voices concerns that he is afraid he is going to . Discussed this patient's case with General surgery after my exam today agree patient needs repeat CT scan the abdomen. IV fluids are restarted at 125 mL/hour. He is continuing to receive pain medications. Review of Systems Review of Systems: All systems reviewed & are unremarkable except as noted in HPI and below Exam Const: General: uncomfortable (Pt. with severe anxiety and complaints of abdomen and back pain.) HENMT: General nose exam: Normal nares present and Epistaxis present Mouth: Yes moist mucous membranes Eyes: General: appearance normal, both eyes and all related structures Sclera: sclerae normal Pupils: Equal, round and reactive pupils present EOM: EOMs intact bilaterally Neck: Neck: supple and no JVD Lymphatic: lymphadenopathy not noted Resp: Effort & Inspection: abnormal respiratory effort ( Decrease inspiration, likely secondary to abdominal pain) Auscultation: diminished lung sounds bilateral in the lower lung blackwell ( bases) Cardio: Rate: tachycardic ( 120s) Rhythm: regular rhyth
--- NOTE | 2022-02-01 11:05 | PCRCNOTE ---
HOME O2 EVAL ON HOLD, NO DISCHARGE PLANS. PT 96% ON 2L
--- NOTE | 2022-02-01 14:28 | PC.NURSE ---
Patient coughed up a dark green/black thick sputum. [facility]thr [facility] notified
[2022-02-02] VITALS (12 sets, daily range): BP systolic 135–153; BP diastolic 83–93; PULSE 101–122; RESP 14–18; TEMP 36.5–37; O2SAT 94–100
[2022-02-02] MEDS: SODIUM CHLORIDE 0.9% IV 1,000 ML 125 ML IV CONT ×2 (02:47→15:24)
[2022-02-02] MEDS: ONDANSETRON INJ 4 MG/2 ML VIAL IV PUSH (04:33)
[2022-02-02 06:13] LABS: Hematocrit 37.6 % (42.0-52.0); Hemoglobin 12.5 g/dL (14.0-18.0); Mean Corpuscular HGB Conc 33.2 g/dl (32-36); Mean Corpuscular Volume 84.3 fl (80-100); Mean Platelet Volume 9.1 fl (7.4-10.4); Platelet Count Result 400 k/mm3 (150-375); Red Blood Count 4.46 M/mm3 (4.6-6.20); Red Cell Distribution Width 13.5 % (11.5-14.5); White Blood Count 9.3 K/mm3 (4.5-10.0)
[2022-02-02 06:28] LABS: Alanine Aminotransferase 30 U/L (6-50); Albumin Level 3.4 g/dL (3.5-5.1); Alkaline Phosphatase 67 U/L (38-126); Anion Gap 11 mmol/L (8-16); Aspartate Amino Transferase 23 U/L (17-59); Bilirubin,Total 0.8 mg/dL (0.2-1.3); Blood Urea Nitrogen 18 mg/dL (9-20); Calcium 8.7 mg/dL (8.4-10.2); Carbon Dioxide 25 mmol/L (22-30); Chloride 95 mmol/L (98-107); Estimated CRCL calculation 118 ml/min; Estimated Glomerular Filt Rate > 60; Glucose 124 mg/dL (65-110); Magnesium 2.1 mg/dL (1.6-2.3); Potassium 3.2 mmol/L (3.4-5.0); Sodium 131 mmol/L (137-145)
--- NOTE | 2022-02-02 08:59 | PM.PNGS ---
Progress Note: A&P Assessment and Plan (1) Acute appendicitis: Qualifiers: Acute appendicitis type: with localized peritonitis Appendicitis abscess presence: without abscess Appendicitis gangrene presence: without gangrene Appendicitis perforation presence: without perforation Qualified Code(s): K35.30 - Acute appendicitis with localized peritonitis, without perforation or gangrene Code(s): K35.80 - Unspecified acute appendicitis Status: Acute Assessment and Plan: better, ileus resolving, cont drain/abx, ADAT, encourage OOB/IS (2) Sepsis: Code(s): A41.9 - Sepsis, unspecified organism Status: Acute Assessment and Plan: see above, cont IV abx Subjective Subjective Date/Time Seen: 02/02/22 08:59 feels better overall, some N/V yesterday, had BM x 2 overnight Review of Systems Review of Systems: All systems reviewed & are unremarkable except as noted in HPI and below Exam Const: General: cooperative, comfortable, no acute distress and tired appearing Resp: Auscultation: clear to auscultation bilaterally Cardio: Rate: tachycardic Rhythm: regular rhythm GI: Inspection: normal to inspection, distended and incision GI Palp: No abdominal tenderness, Yes Soft to palpation, No Tenderness to palpation present (GI), No Guarding due to palpation present (GI) and No Rigid due to palpation Objective Data Vital Signs Vital Signs: Vital Signs - 24 hr 02/01/22 10:08 02/01/22 12:00 02/01/22 14:08 Temperature 36.9 C 37.2 C Pulse Rate 111 H 115 H Respiratory Rate 18 Blood Pressure 156/98 H Pulse Oximetry 97 Oxygen Delivery 02/01/22 16:00 02/01/22 18:50 02/01/22 18:24 Temperature 36.8 C Pulse Rate 113 H 109 H Respiratory Rate 18 Blood Pressure 148/97 H Pulse Oximetry 94 99 Oxygen Delivery Room Air 02/01/22 22:08 02/01/22 20:00 02/01/22 20:00 Temperature 36.9 C Pulse Rate 116 H 116 H 117 H Respiratory Rate 18 18 Blood Pressure 151/94 H Pulse Oximetry 95 95 Oxygen Delivery Room Air 02/02/22 00:00 02/02/22 03:19 02/02/22 04:00 Temperature 36.9 C Pulse Rate 109 H 109 H 112 H Respiratory Rate 16 Blood Pressure 135/83 Pulse Oximetry 94 Oxygen Delivery 02/02/22 06:28 Temperature 37.0 C Pulse Rate 114 H Respiratory Rate 18 Blood Pressure 153/85 H Pulse Oximetry 95 Oxygen Delivery Intake/Output Intake/Output: Intake & Output 01/30/22 01/31/22 02/01/22 02/02/22 23:59 23:59 23:59 23:59 Intake Total 4808 2810 2650 1550 Output Total 2897 2565 2065 800 Balance 1994 608 888 859 Meds/Results Medications: Active Medications Generic Name Dose Route Start Last Admin Trade Name Freq PRN Reason Stop Dose Admin Acetaminophen 1,000 mg 02/01/22 08:10 Acetaminophen 500 Mg Tablet PO Q6H PRN Mild Pain (1-3) or Fever Hydrocodone Bitart/Acetaminophen 1 tab 01/30/22 10:57 02/01/22 21:02 Hydrocodone/Acetaminophen (*Crx) 5-325 Mg Tablet PO 1 tab Q4H PRN Administration Pain Rated 4-6 Alprazolam 0.5 mg 01/31/22 08:02 02/01/22 21:02 Alprazolam (*Crx) 0.5 Mg Tablet PO 0.5 mg TID PRN Administration Anxiety Calcium Carbonate 200 mg 01/31/22 08:16 01/31/22 20:40 Calcium Carbonate (Tums) 500 Mg (200 Mg Elemental) PO 200 mg Q6H PRN Administration Indigestion Hydromorphone HCl 0.5 mg 01/29/22 21:59 01/31/22 00:23 Hydromorphone Hcl Inj (*Crx) 1 Mg/Ml Syr IV PUSH 0.5 mg Q4H PRN Administration Pain Rated 7-10 Piperacillin/Tazobactam/Dextrose 3.375 gm in 50 mls @ 100 mls/hr 01/30/22 06:00 02/02/22 05:41 Zosyn 3.375 Gm/D5w 50ml Pm IVPB 100 mls/hr Q6H GONSALO Administration Azithromycin 250 mg/ Dextrose 250 mls @ 250 mls/hr 01/31/22 17:00 02/01/22 17:35 IVPB Infused Q24H GONSALO Infusion Sodium Chloride 1,000 mls @ 125 mls/hr 02/01/22 06:35 02/02/22 02:47 Normal Saline Iv IV CONT 125 mls/hr .Q8H GONSALO Administration Po
[2022-02-02] MEDS: POTASSIUM CHLORIDE INJ 40 MEQ in SODIUM CHLORIDE 0.9% IV 500 ML 130 MEQ IVPB (09:04)
[2022-02-02] MEDS: PANTOPRAZOLE SODIUM IV 40 MG VIAL IV PUSH (09:12)
--- NOTE | 2022-02-02 10:13 | PM.IMPN ---
Progress Note: A&P Assessment and Plan (1) Acute appendicitis: Qualifiers: Acute appendicitis type: with localized peritonitis Appendicitis abscess presence: without abscess Appendicitis gangrene presence: without gangrene Appendicitis perforation presence: without perforation Qualified Code(s): K35.30 - Acute appendicitis with localized peritonitis, without perforation or gangrene Code(s): K35.80 - Unspecified acute appendicitis Status: Acute Assessment and Plan: - Today's postop day 2. - Patient with interval development fever, tachycardia, oxygen requirement. - Patient has been administered 2 doses IV metoprolol for tachycardia 30s to 140s. He is currently sustaining 120s with fever ranging 100.6-101.7. - Continuing IV antibiotics Zosyn and azithromycin - surgery is managing and CT of abdomen and pelvis is being ordered for repeat this morning. - Chest x-ray indicated suspicion of pneumonia versus atelectasis in the bilateral bases. - Urine culture and blood cultures x2 are pending. - Procalcitonin checked to be 2.5. Remainder of labs are without significant. - Continue IV antibiotics and fluids of normal saline at 125 mL/hour. - New onset sepsis. Source intra-abdominal versus respiratory. 02/02/22: Post-op Day #3. No longer meeting Sepsis criteria. Will continue current IV abx pending results of Blood cultures, urine cultures and sputum culture. - Continue to provide prn anti-emetics and prn pain meds. - Pt. has been weaned off of his oxygen and has no complaints of dyspnea, or cough and is not demonstrating dyspnea either. - CT yesterday demonstrated a post-operative Ileus that appears to have resolved with 2 BM's overnight and the passing of flatus. Surgery increased his diet to Clears. - Pt. was encouraged to ambulate to stimulate peristalsis. (2) Sepsis: Code(s): A41.9 - Sepsis, unspecified organism Status: Acute Assessment and Plan: - Cultures are pending of blood, urine and sputum. - See plan for problem #1. (3) Acute anxiety: Code(s): F41.9 - Anxiety disorder, unspecified Status: Acute Assessment and Plan: - Continue Xanax at this time. - Patient extremely anxious regarding his current health status. All questions were answered for the patient to the best my ability he was reassured medical team is working along with surgery. (4) Hypokalemia: Code(s): E87.6 - Hypokalemia Status: Acute Assessment and Plan: - Potassium today is mildly decreased at 3.2. - 40 mEq K+ rider ordered. - Will re-evaluate in the AM. Time Spent With Patient Time with patient: 15 - 25 minutes Subjective Date/time seen: 02/02/22 0915 This pt was examined at the bedside in interval assessment. He reports that he is feeling much better today, he has passed flatus multiple times and he has had 2 BM's overnight after he had two bouts of vomiting after CT demonstrated ileus. It appears that the Ileus has now resolved and the pt. reports that his pain is much improved. Drain remains and recommendations for removal will come from [facility]. Pt's Potassium is marginally decreased today at 3.2. He will receive a 40 mEq K+ rider. Pt has been evaluated by [facility] this AM and his diet is being advanced to clears. He has no new complaints of CP, dyspnea, Headache, lightheadedness or dizziness. His anxiety appears to be less today as well. His is at the bedside and I have answered all questions within my ability. We will continue to monitor his condition. Review of labs indicate that the preliminary blood cultures are both without growth. Urine and sputum are still pending. Review of Systems Review of Systems: All systems reviewed & are unremarkable except as noted in HPI and below Exam Const: General: comfortable and no acute distress HENMT: General nose exam: Normal nares present and no epistaxis Mouth: Yes moist mucous membranes E
[2022-02-02] MEDS: ALPRAZolam (*CRX) 0.5 MG TABLET PO (21:32)
[2022-02-03] VITALS (7 sets, daily range): BP systolic 140–146; BP diastolic 89–92; PULSE 84–112; RESP 14–18; TEMP 36.4–36.8; O2SAT 96–98
[2022-02-03] MEDS: SODIUM CHLORIDE 0.9% IV 1,000 ML 125 ML IV CONT (02:30)
[2022-02-03 06:03] LABS: Hematocrit 36.2 % (42.0-52.0); Hemoglobin 12.1 g/dL (14.0-18.0); Mean Corpuscular HGB Conc 33.4 g/dl (32-36); Mean Corpuscular Hemoglobin 27.9 pg (26-34); Mean Corpuscular Volume 83.6 fl (80-100); Mean Platelet Volume 8.8 fl (7.4-10.4); Platelet Count Result 432 k/mm3 (150-375); Red Blood Count 4.33 M/mm3 (4.6-6.20); Red Cell Distribution Width 13.4 % (11.5-14.5)
[2022-02-03 06:24] LABS: Alanine Aminotransferase 28 U/L (6-50); Albumin Level 3.3 g/dL (3.5-5.1); Alkaline Phosphatase 70 U/L (38-126); Anion Gap 12 mmol/L (8-16); Aspartate Amino Transferase 28 U/L (17-59); Bilirubin,Total 0.7 mg/dL (0.2-1.3); Blood Urea Nitrogen 15 mg/dL (9-20); Calcium 8.9 mg/dL (8.4-10.2); Carbon Dioxide 22 mmol/L (22-30); Chloride 99 mmol/L (98-107); Estimated CRCL calculation 134 ml/min; Estimated Glomerular Filt Rate > 60; Glucose 121 mg/dL (65-110); Magnesium 2.2 mg/dL (1.6-2.3); Potassium 3.1 mmol/L (3.4-5.0); Sodium 133 mmol/L (137-145)
[2022-02-03] MEDS: PANTOPRAZOLE SODIUM IV 40 MG VIAL IV PUSH (08:37)
[2022-02-03] MEDS: POTASSIUM CHLORIDE 20 MEQ PACKET (FOR LIQUID) 60 MEQ PO (08:38)
[2022-02-03] MEDS: ACETAMINOPHEN 500 MG TABLET 1000 MG PO (08:49)
[2022-02-03] MEDS: ONDANSETRON INJ 4 MG/2 ML VIAL IV PUSH (09:40)
[2022-02-03] MEDS: POTASSIUM CHLORIDE 20 MEQ TABLET 60 MEQ PO (10:36)
--- NOTE | 2022-02-03 13:16 | PM.DS ---
DS: Admitting Diagnosis Discharge Date 02/03/2022 Admitting Diagnosis Acute Appendicitis DS: Discharge Diagnosis Discharge Diagnosis (1) Acute appendicitis: Qualifiers: Acute appendicitis type: with localized peritonitis Appendicitis abscess presence: without abscess Appendicitis gangrene presence: without gangrene Appendicitis perforation presence: without perforation Qualified Code(s): K35.30 - Acute appendicitis with localized peritonitis, without perforation or gangrene Code(s): K35.80 - Unspecified acute appendicitis Status: Acute Assessment and Plan: - Today's postop day 2. - Patient with interval development fever, tachycardia, oxygen requirement. - Patient has been administered 2 doses IV metoprolol for tachycardia 30s to 140s. He is currently sustaining 120s with fever ranging 100.6-101.7. - Continuing IV antibiotics Zosyn and azithromycin - surgery is managing and CT of abdomen and pelvis is being ordered for repeat this morning. - Chest x-ray indicated suspicion of pneumonia versus atelectasis in the bilateral bases. - Urine culture and blood cultures x2 are pending. - Procalcitonin checked to be 2.5. Remainder of labs are without significant. - Continue IV antibiotics and fluids of normal saline at 125 mL/hour. - New onset sepsis. Source intra-abdominal versus respiratory. 02/02/22: Post-op Day #3. No longer meeting Sepsis criteria. Will continue current IV abx pending results of Blood cultures, urine cultures and sputum culture. - Continue to provide prn anti-emetics and prn pain meds. - Pt. has been weaned off of his oxygen and has no complaints of dyspnea, or cough and is not demonstrating dyspnea either. - CT yesterday demonstrated a post-operative Ileus that appears to have resolved with 2 BM's overnight and the passing of flatus. Surgery increased his diet to Clears. - Pt. was encouraged to ambulate to stimulate peristalsis. 02/03/2022: Pt. has been tolerating a low residue diet, he has no remaining pain and he has been stooling and urinating without difficulty. He is ambulating and has active bowel sounds. IVF are stopped and his abx are discontinued as he has no continued symptoms of infection and he also has a negative CXR at this time for an acute PNA. He is not demonstrating any signs of acute infection and his Sputum, urine and blood cultures are all negative. He has completed 3 days of Azithromycin and Zosyn therapy. He is stable for discharge today. (2) Sepsis: Code(s): A41.9 - Sepsis, unspecified organism Status: Resolved Assessment and Plan: - Cultures are pending of blood, urine and sputum. - See plan for problem #1. (3) Acute anxiety: Code(s): F41.9 - Anxiety disorder, unspecified Status: Acute Assessment and Plan: - Continue Xanax at this time. - Patient extremely anxious regarding his current health status. All questions were answered for the patient to the best my ability he was reassured medical team is working along with surgery. - As pt's condition improved, so did his anxiety levels. (4) Hypokalemia: Code(s): E87.6 - Hypokalemia Status: Acute Assessment and Plan: - Potassium today is mildly decreased at 3.1. - He had multiple BM's overnight and today's Potassium is lower as a result. - 60 mEq Potassium ordered for replacement. PO is given as pt. is now eating without difficulty. DS: Summary Hospital Course Reason for hospitalization: Acute Appendicitis Hospital Course: This pleasant 41-year-old male with significant past medical history of anxiety presented to the emergency room on 01/29/2022 with complaints of severe right lower quadrant abdominal pain. He reported associated nausea and vomiting and the pain what it is constant at that time radiating to the back into the groin. Workup was performed in the ED and acute appendicitis was identified. He was admitted to the hospital
== END 2022-02-03 14:00 | disposition home or self-care (01) | DRG 853 ==
LOC: ANHED 20:44 → ANH2MED 22:22
PROVIDERS: Family Medicine; Nurse Practitioner Adult Health; Physician Assistant; Admitting Provider Internal Medicine; Emergency Provider General Practice; PCP Family Medicine; Visit Provider Surgery
PROC: 0DTJ4ZZ Resection of Appendix, Percutaneous Endoscopic Approach (ICD-10-PCS; CPT 44970; principal; 2022-01-30 09:00)
DX: A41.9 Sepsis, unspecified organism (principal); K35.33 Acute appendicitis with perforation, localized peritonitis, and gangrene, with abscess; J18.9 Pneumonia, unspecified organism; K91.89 Other postprocedural complications and disorders of digestive system; K56.7 Ileus, unspecified; E87.6 Hypokalemia; F41.9 Anxiety disorder, unspecified; K21.9 Gastro-esophageal reflux disease without esophagitis; Z20.822 Contact with and (suspected) exposure to COVID-19
CPT/HCPCS: 36415; 71045; 71046; 74019; 74177; 80048; 80053; 81001; 83036; 83605; 83690; 83735; 84145; 85025; 85027; 87040; 87070; 87086; 87205; 88304; 93005; 96361; 96365; 96367; 96375; 99285; A9270; C9113; C9803; G0378; J0131; J0330; J0456; J1100; J1170; J1885; J1940; J2250; J2270; J2405; J2543; J2704; J3010; J3480; J7030; J7040; J7060; J7120; Q9967; U0003; U0005